=== PATIENT | male | born 1930 | race Caucasian/White ===

== ENCOUNTER 2016-04-25 15:53 | Inpatient (IN) | payer MEDICARE ==
[2016-04-25] MEDS ORDERED: Furosemide 100mg/10 ml Vial IV ONE (15:57)
--- NOTE | 2016-04-25 16:03 | ERPHSYRPT ---
- History of Present Illness Time Seen by Provider: 04/25/16 15:59 Source: patient Exam Limitations: no limitations Physician History: 86 y/o male with history of a fib, CHF, DM and HTN brought in by ambulance for respiratory distress for the past few days. Pt has been having worsening shortness of breath, cough, increase work of breathing and subjective fever. Pt was given a duoneb in route with no relief. Pt arrives with an O2 sat of 92% on RA. Pt also admits to chest tightness. Pt denies any chills, abdominal pain, nausea, vomiting, dizziness or palpitations. Timing/Duration: day(s) Activities at Onset: none Severity of Dyspnea-Max: severe Severity of Dyspnea-Current: severe Possible Cause: frequent episodes Modifying Factors: Improves With: albuterol nebulizer Associated Symptoms: chest pain/discomfort, edema, leg swelling Allergies/Adverse Reactions: NKA Allergy (Verified 04/25/16 16:05) Home Medications: Metoprolol Succinate 50 mg [Toprol Xl 50 MG] 50 mg PO DAILY 03/20/12 [ History] Tamsulosin HCl 0.4 mg [Flomax 0.4 MG] 0.4 mg PO DAILY 03/20/12 [History] Cyclobenzaprine HCl 10 mg PO TID 01/06/13 [History] Docusate Sodium [Colace] 100 mg PO TID 01/06/13 [History] Furosemide 20 mg [Lasix 20 mg] 20 mg PO DAILY 01/06/13 [History] Hydrocodone Bit/Acetaminophen [Hydrocodon-Acetaminophen 5-500] 1 each PO Q4HPRN PRN 01/06/13 [History] Prednisone 10 mg [Deltasone 10 mg] 10 mg PO DAILY 01/06/13 [History] Travoprost [Travatan Z] 2.5 ml OP HS 01/06/13 [History] Hx Tetanus, Diphtheria Vaccination/Date Given: Yes (4-5yrs) Hx Influenza Vaccination/Date Given: Yes (2012) Hx Pneumococcal Vaccination/Date Given: Yes (2011) - Review of Systems Constitutional: No Fever, No Chills Eyes: No Symptoms Ears, Nose, & Throat: No Symptoms Respiratory: Cough, Dyspnea, Dyspnea on Exertion (MITCHELL) Cardiac: Chest Pain, Edema, No Syncope Abdominal/Gastrointestinal: No Abdominal Pain, No Nausea, No Vomiting, No Diarrhea Genitourinary Symptoms: No Dysuria Musculoskeletal: No Back Pain, No Neck Pain Skin: No Rash Neurological: No Dizziness, No Focal Weakness, No Sensory Changes Psychological: No Symptoms Endocrine: No Symptoms All Other Systems: Reviewed and Negative - Past Medical History Pertinent Past Medical History: Yes Neurological History: No Pertinent History ENT History: Glaucoma, Macular Degeneration Cardiac History: Arrhythmia, Hypertension Respiratory History: No Pertinent History Endocrine Medical History: No Pertinent History Musculoskeletal History: Arthritis GI Medical History: Hemorrhoids, Other History: No Pertinent History Psycho-Social History: No Pertinent History Male Reproductive Disorders: Prostate Problems Other Medical History: fx back, rectal bleed - Past Surgical History Past Surgical History: Yes Neuro Surgical History: No Pertinent History Cardiac: No Pertinent History Respiratory: No Pertinent History Gastrointestinal: Appendectomy Genitourinary: No Pertinent History Musculoskeletal: No Pertinent History Male Surgical History: No Pertinent History - Social History Smoking Status: Former smoker Exposure to second hand smoke: No Drug Use: none Patient Lives Alone: No - Nursing Vital Signs Nursing Vital Signs: Initial Vital Signs Temperature 97.9 F Temperature Source Oral Respiratory Rate 28 Blood Pressure [Left Arm] 122/79 Pain Intensity 0 - Physical Exam General Appearance: moderate distress, alert Eye Exam: PERRL/EOMI Neck Exam: normal inspection, supple Respiratory Exam: respiratory distress, crackles/rales, rhonchi Cardiovascular/Chest Exam: normal heart sounds, regular rate/rhythm, tachycardia Abdominal/Gastrointestinal Exam: soft, No tenderness, No distention, No mass Extremity Exam: non-tender, normal range of motion, normal inspection, no calf tenderness, pedal edema, swelling Neurologic Exam: alert, oriented x 3, cooperative, hand clerical verifier II-XII nml as tested, sensation nml, No motor deficits Skin Exam: normal color, warm, No dry - Course Nursing assessment & vital signs reviewed: Yes Ordered Tests: Active Orders 24 hr Category Date Time Status EKG-ER Only STAT Care 04/25/16 15:57 Active Mendoza [Catheter-Shoreham Mendoza] STAT Care 04/25/16 15:54 Active IV Insertion STAT Care 04/25/16 15:56 Active CHEST 1 VIEW (PORTABLE) Stat Exams 04/25/16 15:55 Completed VENOUS UNILAT/LIMITED EXTREMIT [US] Stat Exams 04/25/16 16:03 Completed ABG [ARTERIAL BLOOD GASES] Stat Lab 04/25/16 15:56 Results BLOOD CULTURE Stat Lab 04/25/16 16:24 Received CBC W DIFF Stat Lab 04/25/16 16:24 Completed CMP Stat Lab 04/25/16 16:24 Completed Lactic Acid Stat Lab 04/25/16 16:22 Completed Manual Differential NC Stat Lab 04/25/16 16:24 Completed NT PRO BNP Stat Lab 04/25/16 16:24 Completed TROPONIN Stat Lab 04/25/16 16:24 Completed Oxygen NASAL CANNULA 4 lpm RT 04/25/16 16:07 Active Medication Summary Generic Name Dose Route Start Last Admin Trade Name Freq PRN Reason Stop Dose Admin Levofloxacin/Dextrose 150 mls @ 100 mls/hr 04/25/16 16:56 04/25/16 17:03 Levofloxacin 750mg/150ml D5w IV 04/25/16 18:25 100 mls/hr STAT ONE Administration Discontinued Medications Generic Name Dose Route Start Last Admin Trade Name Freq PRN Reason Stop Dose Admin Furosemide 60 mg 04/25/16 15:57 04/25/16 16:04 Furosemide 100mg/10 Ml Vial IV 04/25/16 15:58 60 mg STAT ONE Administration Furosemide Confirm 04/25/16 16:04 Furosemide 100mg/10 Ml Vial Administered 04/25/16 16:05 Dose 100 mg .ROUTE .STK-MED ONE Levofloxacin/Dextrose Confirm 04/25/16 17:02 Levofloxacin 750mg/150ml D5w Administered 04/25/16 17:03 Dose 150 mls @ ud IV .STK-MED ONE Lab/Rad Data: Laboratory Result Diagrams 04/25/16 16:24 04/25/16 16:24 Laboratory Results 04/25/16 04/25/16 04/25/16 Range/Units 16:24 16:24 16:24 WBC 17.6 H (4.0-10.5) K/mm3 RBC 5.18 (4.1-5.6) M/mm3 Hgb 16.3 (12.5-18.0) gm/dl Hct 48.1 (42-50) % MCV 92.9 (78-100) fl MCH 31.5 (26-32) pg MCHC 33.9 (32-36) g/dl RDW 13.9 (11.5-14.0) % Plt Count 135 L (150-450) K/mm3 MPV 11.5 H (6-9.5) fl Puncture Site pCO2 (35-45) mmHg pO2 (75-100) mmHg Base Excess (-2.0-2.0) O2 Saturation (94-100) g/dF ABG pH (7.35-7.45) ABG HCO3 (22-28) ABG O2 Sat (Measured) (95-100) % Efraín Test A-a Gradient a/A Ratio Hemoglobin Carboxyhemoglobin (0.0-6.9) % THgb Methemoglobin (1.4-1.5) % Potassium 4.4 (3.5-5.1) Temperature C POC O2 Flow Rate % Sodium 136 (136-145) mEq/L Chloride 100 (98-107) mEq/L Carbon Dioxide 24.7 (21-32) mEq/L Anion Gap 15.8 H (5-15) MEQ/L BUN 19 (9-20) mg/dL Creatinine 1.51 H (0.55-1.30) mg/dl Estimated GFR 47 ML/MIN Glucose 222 H (70-110) MG/DL Lactic Acid (0.4-2.0) Calcium 8.5 (8.5-10.1) mg/dL Total Bilirubin 1.1 H (0.2-1.0) mg/dL AST 28 (15-37) U/L ALT 34 (12-78) U/L Alkaline Phosphatase 94 (46-116) U/L Troponin I < 0.017 (0.000-0.056) ng/ml NT-Pro-B Natriuret Pep 1953 H (0-450) pg/ml Serum Total Protein 6.6 (6.4-8.2) gm/dL Albumin 2.7 L (3.4-5.0) g/dL 04/25/16 04/25/16 Range/Units 16:22 15:56 WBC (4.0-10.5) K/mm3 RBC (4.1-5.6) M/mm3 Hgb (12.5-18.0) gm/dl Hct (42-50) % MCV (78-100) fl MCH (26-32) pg MCHC (32-36) g/dl RDW (11.5-14.0) % Plt Count (150-450) K/mm3 MPV (6-9.5) fl Puncture Site Pending pCO2 35 (35-45) mmHg pO2 60 L (75-100) mmHg Base Excess 1.5 (-2.0-2.0) O2 Saturation 92.1 L (94-100) g/dF ABG pH 7.46 H (7.35-7.45) ABG HCO3 24.9 (22-28) ABG O2 Sat (Measured) 94.9 L (95-100) % Efraín Test Pending A-a Gradient 153 a/A Ratio 0.28 Hemoglobin 16.2 Carboxyhemoglobin 1.9 (0.0-6.9) % THgb Methemoglobin 1.1 L (1.4-1.5) % Potassium 4.4 (3.5-5.1) Temperature 37.0 C POC O2 Flow Rate 36 % Sodium (136-145) mEq/L Chloride (98-107) mEq/L Carbon Dioxide (21-32) mEq/L Anion Gap (5-15) MEQ/L BUN (9-20) mg/dL Creatinine (0.55-1.30) mg/dl Estimated GFR ML/MIN Glucose (70-110) MG/DL Lactic Acid 2.9 H (0.4-2.0) Calcium (8.5-10.1) mg/dL Total Bilirubin (0.2-1.0) mg/dL AST (15-37) U/L ALT (12-78) U/L Alkaline Phosphatase (46-116) U/L Troponin I (0.000-0.056) ng/ml NT-Pro-B Natriuret Pep (0-450) pg/ml Serum Total Protein (6.4-8.2) gm/dL Albumin (3.4-5.0) g/dL - Progress Progress: improved Air Movement: fair Progress Note: 04/25/16 17:31 The CXR shows a small infiltrate in the left mid lung field and will require a dose of levaquin. Pt has a white count of 17,000. The ABG shows a pO2 of 60. Pt has a BNP of almost 2000 and has received a dose of lasix 60mg IV X 1 dose. A mendoza has been placed. The RSV is positive. Pt has been admitted to Dr Clark for respiratory distress, CHF and pneumonia. - Departure Time of Disposition: 17:35 Departure Disposition: In-patient Admission Clinical Impression: CHF (congestive heart failure) Qualifiers: Congestive heart failure type: systolic Congestive heart failure chronicity: acute Qualified Code(s): I50.21 - Acute systolic (congestive) heart failure Pneumonia Qualifiers: Pneumonia type: due to unspecified organism Laterality: left Lung location: unspecified part of lung Qualified Code(s): J18.9 - Pneumonia, unspecified organism Condition: Fair Critical Care Time: Yes Critical Care Time(excluding separately billable procedures): 75-104 minutes Instructions: Heart Failure
[2016-04-25] MEDS ORDERED: Furosemide 100mg/10 ml Vial ONE (16:04)
[2016-04-25 16:21] LABS: A-aADO2 153; ARTERIAL BLD GAS O2 SATURATION 94.9 % (95-100); ARTERIAL BLOOD GAS BASE EXCESS 1.5 (-2.0-2.0); ARTERIAL BLOOD GAS FIO2 36 %; ARTERIAL BLOOD GAS PO2 60 mmHg (75-100); ARTERIAL BLOOD GAS pH 7.46 (7.35-7.45)
[2016-04-25 16:33] LABS: Mean Cell Volume 92.9 fl (78-100); Mean Corpuscular Hemoglobin 31.5 pg (26-32); Mean Platelet Volume 11.5 fl (6-9.5); Platelet Count 135 K/mm3 (150-450); Red Blood Count 5.18 M/mm3 (4.1-5.6); Red Cell Distribution Width 13.9 % (11.5-14.0); White Blood Count 17.6 K/mm3 (4.0-10.5)
--- NOTE | 2016-04-25 16:52 | XRAY ---
Exam: AP upright portable chest film from 1610 hrs. on 04/25/2016. Comparison: Frontal chest film from 03/22/2012. Indication: Shortness of breath. Findings: The transverse heart size appears within normal limits. I believe there is a small epicardial fat-pad at the left cardiophrenic angle. The grover and mediastinal structures appear intact. There appears to be a subtle focal air space infiltrate overlying the left midlung field. This is asymmetric with respect to the right lung. Correlate clinically regarding pneumonia. This is a new finding from 03/22/2012. Respiratory tubing overlies the right lung apex. The remainder of the lung gonzalez appears clear. No vascular congestion, pneumothorax, or pleural effusion fluid is seen. Some arthritic changes are seen within both shoulder girdles. Impression: 1. There appears to be a subtle airspace infiltrate overlying the left midlung field which is new from 03/22/2012 and is asymmetric with respect to the right lung on the current exam. I cannot exclude focal pneumonia at this site.
[2016-04-25] MEDS ORDERED: LEVOFLOXACIN 750MG/150ML D5W 150 ML IV ONE ×2 (16:56→17:02)
--- NOTE | 2016-04-25 16:58 | XRAY ---
Exam: Left lower extremity duplex Doppler venous ultrasound exam from 04/25/2016. Comparison: None. Indication: Left leg swelling. Technique: Real-time sonograms were obtained as well as Doppler tracings and color flow imaging of the left lower extremity within the deep veins as well as the proximal greater saphenous vein. Findings: Normal color flow imaging, transducer compression, spontaneous and phasic flow of Doppler signal, and Doppler signal augmentation were seen throughout the deep veins of the left lower extremity. No echogenic clot was seen within any of the deep veins of the left lower extremity on the grayscale images. Impression: 1. No sonographic or Doppler evidence of deep venous thrombosis is seen within the left lower extremity.
[2016-04-25 17:02] LABS: ALBUMIN 2.7 g/dL (3.4-5.0); ANION GAP 15.8 MEQ/L (5-15); BILIRUBIN,TOTAL 1.1 mg/dL (0.2-1.0); Carbon Dioxide 24.7 mEq/L (21-32); Potassium 4.4 mEq/L (3.5-5.1); Total Protein 6.6 gm/dL (6.4-8.2)
[2016-04-25 17:56] LABS: ATYPICAL LYMPHS 2 %; Platelet Estimate NORMAL (NORMAL); Total Cells Counted 100
[2016-04-25] MEDS: TYLENOL 325 MG PO PRN (22:16)
[2016-04-25] MEDS: solu-MEDROL 125 MG IV SCH (22:20)
[2016-04-25] MEDS ORDERED: BENADRYL 25 MG CAPSULE PO PRN (22:51)
[2016-04-25] MEDS ORDERED: Travatan 0.004% Opth Sol OP SCH (23:00)
[2016-04-26] MEDS: Robitussin 100 MG/5 ML PO PRN (00:31)
[2016-04-26] MEDS: xanAX 0.25 MG PO PRN ×2 (00:31→23:06)
[2016-04-26] MEDS ORDERED: DUONEB 0.5-3 MG/3 ml Neb IH ONE (06:00)
[2016-04-26] MEDS: DUONEB 0.5-3 MG/3 ml Neb IH PRN (06:05)
[2016-04-26 06:16] LABS: Mean Cell Volume 92.9 fl (78-100); Mean Corpuscular Hemoglobin 31.5 pg (26-32); Mean Platelet Volume 11.4 fl (6-9.5); Platelet Count 127 K/mm3 (150-450); Red Blood Count 4.92 M/mm3 (4.1-5.6); White Blood Count 15.1 K/mm3 (4.0-10.5)
[2016-04-26 06:37] LABS: Carbon Dioxide 26.7 mEq/L (21-32); Potassium 4.1 mEq/L (3.5-5.1)
[2016-04-26 06:38] LABS: TROPONIN < 0.017 ng/ml (0.000-0.056)
[2016-04-26] MEDS: solu-MEDROL 125 MG IV SCH ×3 (06:51→17:28)
[2016-04-26] MEDS ORDERED: BENADRYL 25 MG CAPSULE PO PRN (08:50)
[2016-04-26] MEDS ORDERED: PHENYLEPHRINE HCL 10 MG PO PRN (08:50)
[2016-04-26] MEDS ORDERED: MAG PO PRN (08:50)
[2016-04-26] MEDS ORDERED: GUAIFENESIN 400 MG PO PRN (08:50)
[2016-04-26] MEDS ORDERED: ASPIRIN PO PRN (08:50)
[2016-04-26] MEDS ORDERED: CALCIUM CARBONATE PO PRN (08:50)
[2016-04-26] MEDS ORDERED: Ecotrin 325 MG PO PRN (08:53)
[2016-04-26] MEDS ORDERED: MEDICATION INTERVENTION MC SCH (09:00)
[2016-04-26] MEDS: Toprol Xl 50 MG PO SCH (11:12)
[2016-04-26] MEDS: Flomax 0.4 MG PO SCH (11:12)
[2016-04-26] MEDS: Lasix 40 MG/4 ML IV SCH (11:12)
[2016-04-26] MEDS: Vasotec 5 MG PO SCH (11:12)
[2016-04-26] MEDS: Toprol-Xl 25MG Tablets PO SCH (11:12)
[2016-04-26] MEDS: Mucinex 600MG ER Tabs PO PRN (11:12)
[2016-04-26] MEDS: ENOXAPARIN SODIUM SQ SCH (11:12)
[2016-04-26] MEDS ORDERED: solu-MEDROL 125 MG IV SCH (14:00)
--- NOTE | 2016-04-26 16:10 | HP ---
CHIEF COMPLAINT: Shortness of breath. HISTORY OF PRESENT ILLNESS: Patient is an 86-year-old white male patient, reports he has been having trouble with shortness of breath over the past couple of months. He began having problems with worsening in his breathing recently, however, becoming very short of breath. The ambulance was summoned, the patient was taken to the emergency room and subsequently admitted to the hospital, having been diagnosed with RSV infection. PAST MEDICAL HISTORY: Significant for glaucoma, macular degeneration, hypertension, arthritis, hemorrhoids, prostate problems. HOME MEDICATIONS: Include metoprolol 50 mg daily, Tamsulosin 0.4 mg at night, cyclobenzaprine mg t.i.d., Docuset 100 mg t.i.d., Lasix 20 mg daily, hydrocodone 5/325 q.4h p.r.n., prednisone 10 mg a day, and Travatan T 2.5 mL optic solution. ALLERGIES: No known drug allergies. PHYSICAL EXAMINATION: GENERAL: Reveals a well nourished, well developed elderly white male patient, currently in no significant distress. VITAL SIGNS: At the time of my visit showed his temperature to be 95.0, pulse 70, respiratory rate 26, blood pressure 113/77, O2 saturations 93% on supplemental oxygen per nasal cannula. HEENT: Normocephalic and atraumatic, pupils are equal, round, reactive to light, extraocular muscles intact. Oropharynx is dry. NECK: Supple without lymphadenopathy, thyromegaly or JVD. CHEST: Reveals bilateral wheezes with fair air movement bilaterally. HEART: Regular rate and rhythm without murmurs, rubs or gallops. ABDOMEN: Soft, nontender, nondistended without hepatosplenomegaly or masses. EXTREMITIES: Without cyanosis, clubbing or edema. NEUROLOGIC: The patient is alert and oriented x3. LABS: Chest x-ray showed a subtle airspace infiltrate overlying the left mid lung field, new from 03/22/12. The patient had a venous ultrasound lower extremities showing no evidence of deep vein thrombosis. He had white count of 17,600, a hemoglobin of 16.3, platelet count of 135,000. He had 93% neutrophils. His metabolic panel showed a nonfasting sugar at 222, BUN 19, creatinine 1.51. electrolytes were normal. He had a NT Pro BNP fuse elevated to 1953. He had negative influenza A and B, however, positive for RSV as indicated above. The patient's troponins were less than 0.017. ASSESSMENT: The patient has RSV bronchitis, possible viral pneumonia. The patient has been admitted to the hospital. For his respiratory distress he has been placed on IV Solu-Medrol at 125 IV q.6h, as well as nebulizer treatments. We will continue his usual home medications for his other medical problems as indicated above.
[2016-04-26] MEDS ORDERED: Levofloxacin 500MG/100ML D5W 100 ML IV SCH (17:00)
[2016-04-26] MEDS: NovoLOG Insulin SQ PRN (17:28)
[2016-04-26] MEDS: PATIENT OWN MEDICATION OP SCH (21:45)
[2016-04-27] MEDS: Robitussin 100 MG/5 ML PO PRN (00:45)
[2016-04-27] MEDS: solu-MEDROL 125 MG IV SCH ×4 (00:48→22:36)
[2016-04-27 06:18] LABS: Mean Corpuscular Hemoglobin 31.4 pg (26-32); Mean Platelet Volume 11.3 fl (6-9.5); Platelet Count 131 K/mm3 (150-450); Red Blood Count 4.72 M/mm3 (4.1-5.6); Red Cell Distribution Width 13.8 % (11.5-14.0); White Blood Count 19.2 K/mm3 (4.0-10.5)
[2016-04-27 09:38] LABS: BAND 2 % (0.0-2.0); Total Cells Counted 100
[2016-04-27 09:39] LABS: Platelet Estimate DECREASED (NORMAL)
[2016-04-27 09:40] LABS: ANION GAP 13.3 MEQ/L (5-15); Carbon Dioxide 27.4 mEq/L (21-32)
[2016-04-27 10:43] LABS: VBG BASE EXCESS 1.6 (-2.0-2.0); VBG CARBOXYHEMOGLOBIN 1.6 % T HGB (0.0-6.9); VBG HCO3- 24.7 meq/L (22-28); VBG O2 SATURATION 84.8 (95-100); VBG pH 7.47 (7.32-7.42)
[2016-04-27] MEDS: Toprol Xl 50 MG PO SCH (11:14)
[2016-04-27] MEDS: Lasix 40 MG/4 ML IV SCH (11:14)
[2016-04-27] MEDS: Vasotec 5 MG PO SCH (11:14)
[2016-04-27] MEDS: Toprol-Xl 25MG Tablets PO SCH (11:14)
[2016-04-27] MEDS: Flomax 0.4 MG PO SCH (11:14)
[2016-04-27] MEDS: ROCEPHIN 1 Gm-D5w 50 ml Bag** 50 ML IV SCH (11:19)
[2016-04-27] MEDS: ENOXAPARIN SODIUM SQ SCH (11:29)
[2016-04-27] MEDS: Zithromax 500 MG/ 250 ML NaCl Premix 250 ML IV SCH (11:59)
[2016-04-27] MEDS: Mucinex 600MG ER Tabs PO PRN (19:45)
[2016-04-27] MEDS: DUONEB 0.5-3 MG/3 ml Neb IH PRN (21:21)
[2016-04-27] MEDS: NovoLOG Insulin SQ PRN (22:34)
[2016-04-27] MEDS: PATIENT OWN MEDICATION OP SCH (22:36)
[2016-04-28] MEDS: Robitussin 100 MG/5 ML PO PRN ×2 (02:04→12:03)
[2016-04-28] MEDS: TYLENOL 325 MG PO PRN ×2 (04:47→22:34)
[2016-04-28 05:49] LABS: Mean Cell Volume 91.7 fl (78-100); Mean Corpuscular Hemoglobin 30.9 pg (26-32); Mean Platelet Volume 11.3 fl (6-9.5); Platelet Count 142 K/mm3 (150-450); Red Blood Count 4.59 M/mm3 (4.1-5.6); Red Cell Distribution Width 13.8 % (11.5-14.0); White Blood Count 16.6 K/mm3 (4.0-10.5)
[2016-04-28] MEDS: solu-MEDROL 125 MG IV SCH ×2 (05:56→18:46)
[2016-04-28 06:11] LABS: ANION GAP 16.5 MEQ/L (5-15); Carbon Dioxide 24.1 mEq/L (21-32); Potassium 3.9 mEq/L (3.5-5.1)
[2016-04-28 06:37] LABS: Total Cells Counted 100
[2016-04-28 06:39] LABS: ANISOCYTOSIS 1+; Poikilocytosis 1+
[2016-04-28 06:49] LABS: Platelet Estimate NORMAL (NORMAL)
[2016-04-28] MEDS: DUONEB 0.5-3 MG/3 ml Neb IH PRN ×2 (07:25→10:58)
--- NOTE | 2016-04-28 08:53 | PCM.NOTE ---
Date and Time: 04/28/1648 Subjective Assessment: He reports he is not interested in going to rehab and wants to go home. He reports he has not walked since he went out to vote. His son is building a [employer] ramp for him. He does not want to go on medicaid at all but is willing to discuss hospice if it is a medicare benefit. He continues to want to be a full code at this time. He reports fatigue and a little bit of an appetite. He continues to have some cough and shortness of breath. - Review of Systems Constitutional: Fatigue Eyes: No Symptoms Ears, Nose, & Throat: No Symptoms Respiratory: Cough, Short Of Breath, Wheezing Cardiac: No Symptoms Abdominal/Gastrointestinal: No Symptoms Genitourinary Symptoms: No Symptoms Musculoskeletal: No Symptoms Skin: No Symptoms Objective Exam General Appearance: no apparent distress Neurologic Exam: alert, cooperative, other (son at bedside) Skin Exam: normal color, warm, dry, other (thin) Respiratory Exam: other (few scattered wheezes) Cardiovascular Exam: other (irregularly irregular) Extremity Exam: other (mild swelling in lower extremities) OBJECTIVE DATA Vital Signs: Vital Signs - 24 hr Temp Pulse Resp BP Pulse Ox 04/28/16 07:40 18 04/28/16 07:27 76 18 90 L 04/28/16 07:26 98.3 F 86 18 80/47 94 L 04/28/16 04:00 16 04/28/16 03:54 98.7 F 72 16 80/40 92 L 04/28/16 00:00 15 04/27/16 23:59 98.2 F 79 15 90/54 92 L 04/27/16 21:28 67 22 95 04/27/16 20:00 98.5 F 74 15 132/78 92 L 04/27/16 16:03 96 04/27/16 16:00 96.0 F 76 23 187/100 91 L 04/27/16 12:00 98.0 F 92 H 22 120/58 96 Oxygen-Last 24 hours O2 Percentage 3 Liters = 32% O2 Percentage 3 Liters = 32% O2 Percentage 3 Liters = 32% O2 Percentage 3 Liters = 32% O2 Percentage 3 Liters = 32% O2 Percentage 3 Liters = 32% Pain Assessment - Last Documented Pain Intensity 2 Pain Scale Used 0-10 Pain Scale Intake and Output: Intake & Output 04/26/16 04/27/16 04/28/16 04/29/16 06:59 06:59 06:59 06:59 Intake Total 420 1190 750 Output Total 800 1200 1000 Balance -380 -10 -250 Weight 115.4 kg 116.573 kg Lab Results: Accuchecks Date 04/28/16 Time 07:30 Accucheck Value: 199 Accucheck Value: 230 Accucheck Value: 162 Accucheck Value: 190 Lab Results-Last 24 Hours 04/27/16 04/27/16 04/27/16 Range/Units 06:00 06:00 10:41 WBC 19.2 H (4.0-10.5) K/mm3 RBC 4.72 (4.1-5.6) M/mm3 Hgb 14.8 (12.5-18.0) gm/dl Hct 43.9 (42-50) % MCV 93.0 (78-100) fl MCH 31.4 (26-32) pg MCHC 33.7 (32-36) g/dl RDW 13.8 (11.5-14.0) % Plt Count 131 L (150-450) K/mm3 MPV 11.3 H (6-9.5) fl Segmented Neutrophils 76 H (36.-66.) % Band Neutrophils 2 (0.0-2.0) % Lymphocytes (Manual) 16 L (24-44) % Monocytes (Manual) 6 (0.0-12.0) % Differential Comment NORMAL Platelet Estimate DECREASED (NORMAL) Poikilocytosis Anisocytosis VBG pH 7.47 H (7.32-7.42) VBG pCO2 at Pat Temp 34 L (42-55) mm/Hg VBG pO2 at Pat Temp 44 H (25-40) mm/Hg VBG HCO3 24.7 (22-28) meq/L VBG O2 Sat (Gerald) 84.8 L (95-100) VBG Base Excess 1.6 (-2.0-2.0) VBG Hemoglobin 16.0 VBG Carboxyhemoglobin 1.6 (0.0-6.9) % T HGB POC Potassium 4.0 (3.5-5.1) Sodium 134 L (136-145) mEq/L Potassium 4.0 (3.5-5.1) mEq/L Chloride 97 L (98-107) mEq/L Carbon Dioxide 27.4 (21-32) mEq/L Anion Gap 13.3 (5-15) MEQ/L BUN 44 H (9-20) mg/dL Creatinine 2.04 H (0.55-1.30) mg/dl Estimated GFR 33 ML/MIN Glucose 200 H (70-110) MG/DL Calcium 8.2 L (8.5-10.1) mg/dL Troponin I (0.000-0.056) ng/ml 04/28/16 04/28/16 04/28/16 Range/Units 05:20 05:20 05:20 WBC 16.6 H (4.0-10.5) K/mm3 RBC 4.59 (4.1-5.6) M/mm3 Hgb 14.2 (12.5-18.0) gm/dl Hct 42.1 (42-50) % MCV 91.7 (78-100) fl MCH 30.9 (26-32) pg MCHC 33.7 (32-36) g/dl RDW 13.8 (11.5-14.0) % Plt Count 142 L (150-450) K/mm3 MPV 11.3 H (6-9.5) fl Segmented Neutrophils 89 H (36.-66.) % Band Neutrophils (0.0-2.0) % Lymphocytes (Manual) 9 L (24-44) % Monocytes (Manual) 2 (0.0-12.0) % Differential Comment ABNORMAL Platelet Estimate NORMAL (NORMAL) Poikilocytosis 1+ Anisocytosis 1+ VBG pH (7.32-7.42) VBG pCO2 at Pat Temp (42-55) mm/Hg VBG pO2 at Pat Temp (25-40) mm/Hg VBG HCO3 (22-28) meq/L VBG O2 Sat (Gerald) (95-100) VBG Base Excess (-2.0-2.0) VBG Hemoglobin VBG Carboxyhemoglobin (0.0-6.9) % T HGB POC Potassium (3.5-5.1) Sodium 133 L (136-145) mEq/L Potassium 3.9 (3.5-5.1) mEq/L Chloride 96 L (98-107) mEq/L Carbon Dioxide 24.1 (21-32) mEq/L Anion Gap 16.5 H (5-15) MEQ/L BUN 64 H (9-20) mg/dL Creatinine 2.70 H (0.55-1.30) mg/dl Estimated GFR 24 ML/MIN Glucose 229 H (70-110) MG/DL Calcium 8.2 L (8.5-10.1) mg/dL Troponin I 0.026 (0.000-0.056) ng/ml Radiology Exams: Radiology Procedures Category Date Time Status ECHO W/2D AND DOPPLER [US] Routine Exams 04/28/16 08:00 Ordered Assessment/Plan (1) CHF (congestive heart failure) Current Visit: Yes Status: Acute Qualifiers: Congestive heart failure type: systolic Congestive heart failure chronicity : acute Qualified Code(s): I50.21 - Acute systolic (congestive) heart failure Assessment & Plan: check ECHO today. Hold metoprolol at this time as systolic BP 80. Consult literacy coach. Consult Hospice. Hold lasix due to low systolic bp. Code(s): I50.9 - HEART FAILURE, UNSPECIFIED (2) RSV (respiratory syncytial virus infection) Current Visit: Yes Status: Acute Code(s): B97.4 - RESPIRATORY SYNCYTIAL VIRUS CAUSING DISEASES CLASSD ELSWHR (3) Atrial fibrillation Current Visit: Yes Status: Acute Assessment & Plan: Currently rate controlled. He has refused full anticoagulation in the past. Continue with aspirin daily. Code(s): I48.91 - UNSPECIFIED ATRIAL FIBRILLATION (4) Acute renal failure Current Visit: Yes Status: Acute Assessment & Plan: Hx of chronic kidney disease with baseline cr of 1.4-1.6. Most likely due to diuresis. (5) Hyponatremia Current Visit: Yes Status: Acute Assessment & Plan: Due to lasix. Hold lasix at this time. Code(s): E87.1 - HYPO-OSMOLALITY AND HYPONATREMIA
[2016-04-28] MEDS: ENOXAPARIN SODIUM SQ SCH (09:52)
[2016-04-28] MEDS: Flomax 0.4 MG PO SCH (09:52)
[2016-04-28] MEDS: ROCEPHIN 1 Gm-D5w 50 ml Bag** 50 ML IV SCH (09:52)
[2016-04-28] MEDS: Zithromax 500 MG/ 250 ML NaCl Premix 250 ML IV SCH (09:53)
[2016-04-28] MEDS: Mucinex 600MG ER Tabs PO PRN (12:02)
[2016-04-28] MEDS: DUONEB 0.5-3 MG/3 ml Neb IH SCH ×2 (14:48→19:16)
[2016-04-28] MEDS: PATIENT OWN MEDICATION OP SCH (20:55)
[2016-04-28] MEDS: NovoLOG Insulin SQ PRN (21:16)
[2016-04-29] MEDS: DUONEB 0.5-3 MG/3 ml Neb IH PRN (03:22)
[2016-04-29] MEDS: TYLENOL 325 MG PO PRN (04:24)
[2016-04-29] MEDS: solu-MEDROL 125 MG IV SCH ×2 (05:48→16:45)
[2016-04-29 06:08] LABS: Mean Cell Volume 91.4 fl (78-100); Mean Corpuscular Hemoglobin 30.8 pg (26-32); Mean Platelet Volume 11.8 fl (6-9.5); Platelet Count 152 K/mm3 (150-450); Red Blood Count 4.54 M/mm3 (4.1-5.6); Red Cell Distribution Width 13.9 % (11.5-14.0); White Blood Count 14.5 K/mm3 (4.0-10.5)
[2016-04-29 06:14] LABS: ANION GAP 18.9 MEQ/L (5-15); Carbon Dioxide 21.6 mEq/L (21-32); Potassium 3.8 mEq/L (3.5-5.1)
[2016-04-29] MEDS: DUONEB 0.5-3 MG/3 ml Neb IH SCH ×4 (06:44→19:33)
[2016-04-29] MEDS: NovoLOG Insulin SQ PRN ×3 (08:10→16:45)
[2016-04-29] MEDS ORDERED: Sodium Chloride 0.9% 500 ML 500 ML IV ONE (08:54)
--- NOTE | 2016-04-29 09:00 | PCM.NOTE ---
Date and Time: 04/29/16 0856 Subjective Assessment: He reports he feels about the same as yesterday. He is receptive to talking to hospice. He is not interested in dialysis. He would like to go home as soon as possible. He reports when he drank a lot of fluids his left arm swelled up and started leaking fluid in the past. He thinks that sometimes the pain medications make him itch or upset his stomach but his back is bothering him and he would like to try something besides tylenol for pain. - Review of Systems Constitutional: Fatigue Eyes: No Symptoms Ears, Nose, & Throat: No Symptoms Respiratory: Cough, Short Of Breath, Wheezing Cardiac: No Symptoms Abdominal/Gastrointestinal: No Symptoms Genitourinary Symptoms: No Symptoms Musculoskeletal: No Symptoms Skin: No Symptoms Objective Exam General Appearance: no apparent distress, alert, other (lying in bed, son at bedside) Neurologic Exam: alert, cooperative, normal mood/affect Skin Exam: normal color, warm, dry, No rash Respiratory Exam: airway intact, other (few scattered wheezes, no crackles, equal breath sounds), No respiratory distress, No accessory muscle use, No crackles/rales Cardiovascular Exam: other (irregularly irregular rhytym) Gastrointestinal/Abdomen Exam: soft, normal bowel sounds, No tenderness, No distention, No mass, No guarding Extremity Exam: other (no c/c/e) OBJECTIVE DATA Vital Signs: Vital Signs - 24 hr Temp Pulse Resp BP Pulse Ox 04/29/16 07:31 95 H 18 94 L 04/29/16 07:23 98.2 F 95 H 18 93/55 94 L 04/29/16 04:00 97.5 F 89 25 H 95/55 97 04/29/16 03:22 97 H 24 94 L 04/29/16 00:00 97.9 F 69 18 100/59 94 L 04/28/16 20:03 94 L 04/28/16 20:00 98.0 F 75 20 97/52 96 04/28/16 19:22 86 18 96 04/28/16 16:00 18 04/28/16 14:55 75 18 96 04/28/16 13:05 98.2 F 91 H 18 102/51 93 L 04/28/16 12:00 18 04/28/16 10:58 79 20 95 04/28/16 10:53 90/58 04/28/16 09:49 92 L Oxygen-Last 24 hours O2 Percentage 2 Liters = 28% O2 Percentage 4 Liters = 36% O2 Percentage 2 Liters = 28% O2 Percentage 4 Liters = 36% Pain Assessment - Last Documented Pain Intensity 4 Pain Scale Used FLACC Intake and Output: Intake & Output 04/27/16 04/28/16 04/29/16 04/30/16 06:59 06:59 06:59 06:59 Intake Total 9553 341 3676 Output Total 1200 1000 1850 Balance -10 250 -176 Weight 117.526 kg 119.204 kg Lab Results: Accuchecks Date 04/28/16 Date 04/28/16 Date 04/28/16 Time 22:00 Time 16:30 Time 11:30 Accucheck Value: 247 Accucheck Value: 193 Accucheck Value: 251 Lab Results-Last 24 Hours 04/29/16 04/29/16 Range/Units 05:00 05:00 WBC 14.5 H (4.0-10.5) K/mm3 RBC 4.54 (4.1-5.6) M/mm3 Hgb 14.0 (12.5-18.0) gm/dl Hct 41.5 L (42-50) % MCV 91.4 (78-100) fl MCH 30.8 (26-32) pg MCHC 33.7 (32-36) g/dl RDW 13.9 (11.5-14.0) % Plt Count 152 (150-450) K/mm3 MPV 11.8 H (6-9.5) fl Sodium 130 L (136-145) mEq/L Potassium 3.8 (3.5-5.1) mEq/L Chloride 93 L (98-107) mEq/L Carbon Dioxide 21.6 (21-32) mEq/L Anion Gap 18.9 H (5-15) MEQ/L BUN 93 H (9-20) mg/dL Creatinine 3.52 H (0.55-1.30) mg/dl Estimated GFR 18 ML/MIN Glucose 220 H (70-110) MG/DL Calcium 8.0 L (8.5-10.1) mg/dL Radiology Exams: Radiology Procedures Category Date Time Status ECHO W/2D AND DOPPLER [US] Routine Exams 04/28/16 08:00 Taken Multi-Disciplinary Progress Notes: Multi-Disciplinary Progress Notes 04/28/16 10:00 (created 04/28/16 15:49) Case Management Note by Della Medina SPOKE WITH SON, NOHEMI IN REGARDS TO NEEDS AT DISCHARGE AND AT HOME CARE PLAN. NOHEMI REPORTS THAT HE IS PRIMARY CAREGIVER. REPORTS THAT HIS DAD HAS BEEN PRETTY MUCH BEDRIDDEN. REPORTS THAT HE HAS BEEN PROVIDING TOTAL PATIENT CARE. DISCUSSED SENIOR CARE REHAB. SON DECLINED NEED FOR REHAB STAY. DISCUSSED HHC SERVICES VS HOSPICE SERVICES. REPORTS THAT HE WANTS TO DISCUSS WITH HIS DAD TODAY AND WILL SPEAK WITH [facility] TOMORROW IN REGARDS TO [facility] SUPPORT IN THE HOME. DECLINED [facility] NEEDS AT PRESENT. WILL CONTINUE TO FOLLOW AND ASSESS FOR ALL DC NEEDS. Initialized on 04/28/16 15:49 - END OF NOTE Assessment/Plan (1) CHF (congestive heart failure) Current Visit: Yes Status: Acute Qualifiers: Congestive heart failure type: systolic Congestive heart failure chronicity : acute Qualified Code(s): I50.21 - Acute systolic (congestive) heart failure Assessment & Plan: Echo ordered. Cardiology consult ordered. Holding off on any more IV lasix as he has acute renal failure on chronic kidney disease now. Code(s): I50.9 - HEART FAILURE, UNSPECIFIED (2) RSV (respiratory syncytial virus infection) Current Visit: Yes Status: Acute Code(s): B97.4 - RESPIRATORY SYNCYTIAL VIRUS CAUSING DISEASES CLASSD ELSWHR (3) Atrial fibrillation Current Visit: Yes Status: Acute Assessment & Plan: Will try to start a low dose of metoprolol today to help control rate. Continue aspirin daily. Patient has not been interested in full anticoagulation. Code(s): I48.91 - UNSPECIFIED ATRIAL FIBRILLATION (4) Acute renal failure Current Visit: Yes Status: Acute Assessment & Plan: Lasix held yesterday. Creatinine is worse today. Will give 500 mL normal saline bolus. (5) Hyponatremia Current Visit: Yes Status: Acute Assessment & Plan: Try 500 mL normal saline bolus. Code(s): E87.1 - HYPO-OSMOLALITY AND HYPONATREMIA
[2016-04-29] MEDS: ROCEPHIN 1 Gm-D5w 50 ml Bag** 50 ML IV SCH (10:00)
[2016-04-29] MEDS: NORCO 5/325 MG PO PRN ×2 (10:45→16:45)
[2016-04-29] MEDS: Flomax 0.4 MG PO SCH (10:51)
[2016-04-29] MEDS: Zithromax 500 MG/ 250 ML NaCl Premix 250 ML IV SCH (10:52)
[2016-04-29] MEDS: ENOXAPARIN SODIUM SQ SCH (11:10)
[2016-04-29 12:43] LABS: Total Cells Counted 100
[2016-04-29 12:44] LABS: ANISOCYTOSIS 1+; Platelet Estimate NORMAL (NORMAL); Poikilocytosis 1+
--- NOTE | 2016-04-29 14:07 | ECHO ---
DATE OF PROCEDURE: 04/28/2016 CLINICAL INFORMATION: Congestive heart failure. The M-mode 2D, and Doppler echocardiogram including color flow Doppler shows accentuated contractility of left ventricle with an ejection fraction calculated at 87%. There is mild tricuspid regurgitation with the right ventricular systolic pressure being elevated at 33 mm of Mercury. The right ventricle is not well visualized. The left atrium is normal in size with a dimension of 3.8 cm. The aortic root is mildly dilated with a dimension of 3.9 cm. The left ventricle is normal in size with a dimension of 3.7 cm. The interventricular septum is mildly thickened at 1.2 cm. The left ventricular posterior wall is moderately thickened with a dimension of 1.9 cm. The aortic valve opens well. It is trileaflet. The mitral valve is grossly normal. There is mild pulmonic regurgitation. There is no thrombus in the left ventricular apex. The underlying rhythm appears to be atrial fibrillation. There is mild aortic regurgitation. The intra-atrial septum is intact. There is no pericardial effusion present. IMPRESSION: 1) ACCENTUATED CONTRACTILITY OF THE LEFT VENTRICLE. 2) MODERATE ASYMMETRIC LEFT VENTRICULAR HYPERTROPHY. 3) MILD AORTIC REGURGITATION ASSOCIATED WITH MILD AORTIC ROOT DILATATION. 4) MILD MITRAL REGURGITATION. 5) MILD PULMONIC REGURGITATION.
[2016-04-29] MEDS: Robitussin 100 MG/5 ML PO PRN (17:50)
[2016-04-29] MEDS: PATIENT OWN MEDICATION OP SCH (22:09)
[2016-04-29] MEDS: Lopressor 25MG Tab PO SCH (22:09)
[2016-04-30] MEDS: NovoLOG Insulin SQ PRN ×4 (01:42→16:42)
[2016-04-30] MEDS: solu-MEDROL 125 MG IV SCH (05:04)
[2016-04-30] MEDS: NORCO 5/325 MG PO PRN (05:05)
[2016-04-30 05:58] LABS: ANION GAP 17.7 MEQ/L (5-15); Carbon Dioxide 24.2 mEq/L (21-32)
[2016-04-30 05:59] LABS: BASOPHIL % 0.1 % (0.0-0.4); Granulocytes % 88.3 % (36.0-66.0); Lymphocytes % 4.2 % (24.0-44.0); Mean Corpuscular Hemoglobin 31.2 pg (26-32); Mean Platelet Volume 11.6 fl (6-9.5); Monocytes % 7.4 % (0.0-12.0); Platelet Count 138 K/mm3 (150-450); Red Blood Count 4.68 M/mm3 (4.1-5.6); Red Cell Distribution Width 13.8 % (11.5-14.0); White Blood Count 13.9 K/mm3 (4.0-10.5)
[2016-04-30] MEDS: DUONEB 0.5-3 MG/3 ml Neb IH SCH ×3 (06:37→14:45)
[2016-04-30 07:40] LABS: BAND 1 % (0.0-2.0); Total Cells Counted 100; Toxic Granulation 1+
[2016-04-30 07:41] LABS: Platelet Estimate NORMAL (NORMAL)
--- NOTE | 2016-04-30 08:58 | PCM.NOTE ---
Date and Time: 04/30/16 0852 Subjective Assessment: Patient reports that he continues to be very fatigued and has not been up to a chair. His son is at the bedside. He is not interested in going to rehab. He wants to go home when he leaves here. He reports not sleeping well and a poor appetite. He reports his left arm started weaping again yesterday. He is not interested in dialysis for his failing kidneys. - Review of Systems Constitutional: No Symptoms Eyes: No Symptoms Respiratory: Short Of Breath, Wheezing Cardiac: No Symptoms Abdominal/Gastrointestinal: No Symptoms Genitourinary Symptoms: No Symptoms Musculoskeletal: No Symptoms Skin: Other (fluid draining from left arm, swellin gin legs. ) Objective Exam General Appearance: no apparent distress, alert Neurologic Exam: alert, cooperative, other (poor insight) Skin Exam: normal color, warm Respiratory Exam: airway intact, diminished breath sounds, crackles/rales, wheezing, No accessory muscle use Cardiovascular Exam: other (irregularly irregular, no m/g/r) Gastrointestinal/Abdomen Exam: soft, No tenderness, No distention, No mass, No guarding Extremity Exam: other (+3 edema to knees bilat) OBJECTIVE DATA Vital Signs: Vital Signs - 24 hr Temp Pulse Resp BP Pulse Ox 04/30/16 07:14 97.6 F 80 18 116/62 94 L 04/30/16 06:42 80 18 94 L 04/30/16 04:00 98.2 F 76 15 110/66 85 L 04/29/16 23:44 97.7 F 83 16 103/59 93 L 04/29/16 20:00 97.9 F 104 H 16 110/54 98 04/29/16 19:38 91 H 20 93 L 04/29/16 16:00 97.6 F 95 H 18 119/58 95 04/29/16 14:08 82 18 94 L 04/29/16 10:57 98.3 F 95 H 18 110/61 95 04/29/16 10:54 80 18 95 Oxygen-Last 24 hours O2 Percentage 2 Liters = 28% O2 Percentage 2 Liters = 28% O2 Percentage 2 Liters = 28% O2 Percentage 2 Liters = 28% O2 Percentage 2 Liters = 28% O2 Percentage 2 Liters = 28% Pain Assessment - Last Documented Pain Intensity 5 Pain Scale Used FLACC Intake and Output: Intake & Output 04/28/16 04/29/16 04/30/16 05/01/16 06:59 06:59 06:59 06:59 Intake Total 750 1180 1221 Output Total 1000 1850 850 Balance -250 -670 371 Weight 117.526 kg 119.204 kg 122.697 kg Lab Results: Accuchecks Date 04/30/16 Time 07:50 Accucheck Value: 215 Accucheck Value: 265 Accucheck Value: 288 Accucheck Value: 217 Accucheck Value: 262 Lab Results-Last 24 Hours 04/29/16 04/30/16 04/30/16 Range/Units 05:00 05:15 05:15 WBC 14.5 H 13.9 H (4.0-10.5) K/mm3 RBC 4.54 4.68 (4.1-5.6) M/mm3 Hgb 14.0 14.6 (12.5-18.0) gm/dl Hct 41.5 L 42.6 (42-50) % MCV 91.4 91.0 (78-100) fl MCH 30.8 31.2 (26-32) pg MCHC 33.7 34.3 (32-36) g/dl RDW 13.9 13.8 (11.5-14.0) % Plt Count 152 138 L (150-450) K/mm3 MPV 11.8 H 11.6 H (6-9.5) fl Gran % 88.3 H (36.0-66.0) % Lymphocytes % 4.2 L (24.0-44.0) % Monocytes % 7.4 (0.0-12.0) % Eosinophils % 0.0 (0.00-5.0) % Basophils % 0.1 (0.0-0.4) % Segmented Neutrophils 81 H 96 H (36.-66.) % Band Neutrophils 1 (0.0-2.0) % Lymphocytes (Manual) 16 L 2 L (24-44) % Monocytes (Manual) 3 1 (0.0-12.0) % Basophils # 0.02 (0-0.4) Differential Comment NORMAL Toxic Granulation 1+ Platelet Estimate NORMAL NORMAL (NORMAL) Poikilocytosis 1+ Anisocytosis 1+ Sodium 132 L (136-145) mEq/L Potassium 4.0 (3.5-5.1) mEq/L Chloride 94 L (98-107) mEq/L Carbon Dioxide 24.2 (21-32) mEq/L Anion Gap 17.7 H (5-15) MEQ/L BUN 97 H (9-20) mg/dL Creatinine 3.56 H (0.55-1.30) mg/dl Estimated GFR 17 ML/MIN Glucose 220 H (70-110) MG/DL Calcium 8.2 L (8.5-10.1) mg/dL Radiology Exams: Radiology Procedures Category Date Time Status ECHO W/2D AND DOPPLER [US] Routine Exams 04/28/16 08:00 Draft Multi-Disciplinary Progress Notes: Multi-Disciplinary Progress Notes 04/29/16 13:35 (created 04/29/16 15:31) Case Management Note by Della Medina FROM [facility] REPORTS THAT THEY WILL BE WORKING WITH SON TO HAVE ALL NECESSARY EQUIPMENT DELIVERED TO PT'S HOME PRIOR TO DISCHARGE. REPORTS THAT PT AND PT'S SON HOPING FOR DISCHARGE HOME TOMORROW, 04/30/16. Initialized on 04/29/16 15:31 - END OF NOTE 04/29/16 10:15 (created 04/29/16 13:00) Case Management Note by Della Medina [facility] TO VISIT WITH PT TODAY BETWEEN [phone] TO ANSWER ANY QUESTIONS FOR PT/SON. Initialized on 04/29/16 13:00 - END OF NOTE 04/29/16 09:49 Case Management Note by Della Medina REFERRAL FAXED TO [facility] PER PT/SON REQUEST AND MD ORDER Initialized on 04/29/16 09:49 - END OF NOTE Assessment/Plan (1) CHF (congestive heart failure) Current Visit: Yes Status: Acute Qualifiers: Congestive heart failure type: systolic Congestive heart failure chronicity : acute Qualified Code(s): I50.21 - Acute systolic (congestive) heart failure Assessment & Plan: His Echo has been read. Health Care Liaison consulted. He must have more diastolic dysfunction as his EF is around 80%. Lasix is currently held due to acute renal failure. Prognosis is guarded and poor. Code(s): I50.9 - HEART FAILURE, UNSPECIFIED (2) RSV (respiratory syncytial virus infection) Current Visit: Yes Status: Acute Code(s): B97.4 - RESPIRATORY SYNCYTIAL VIRUS CAUSING DISEASES CLASSD ELSWHR (3) Atrial fibrillation Current Visit: Yes Status: Acute Assessment & Plan: His rate is currently controlled with metoprolol tartrate 25 mg po bid. Code(s): I48.91 - UNSPECIFIED ATRIAL FIBRILLATION (4) Acute renal failure Current Visit: Yes Status: Acute Assessment & Plan: He is not interested in seeing a vocal artist or having dialysis. (5) Hyponatremia Current Visit: Yes Status: Acute Assessment & Plan: Slightly improved with 500 mL NS bolus. Code(s): E87.1 - HYPO-OSMOLALITY AND HYPONATREMIA
[2016-04-30] MEDS: ENOXAPARIN SODIUM SQ SCH (09:13)
[2016-04-30] MEDS: Lopressor 25MG Tab PO SCH (09:13)
[2016-04-30] MEDS: Flomax 0.4 MG PO SCH (09:13)
[2016-04-30] MEDS: ROCEPHIN 1 Gm-D5w 50 ml Bag** 50 ML IV SCH (09:14)
[2016-04-30] MEDS: Zithromax 500 MG/ 250 ML NaCl Premix 250 ML IV SCH (10:00)
--- NOTE | 2016-04-30 11:11 | PCM.DCORD ---
- Discharge Discharge Date: 04/30/16 Disposition: Home, Self-Care Condition: Fair Prescriptions: New Cefdinir 300 mg PO BID #6 capsule Albuterol/Ipratropium 3ml Neb* [DUONEB 0.5-3 MG/3 ml Neb] 3 ml IH Q4HPRN PRN #50 ampul.neb PRN Reason: Shortness Of Breath/Wheezing Hydrocodone Bit/Acetaminophen [Hydrocodon-Acetaminophen 5-325] 1 each PO Q4H PRN #100 tablet PRN Reason: Pain Metoprolol Tartrate 25 mg [Lopressor 25MG Tab] 25 mg PO BID #60 tab Continue Tamsulosin HCl 0.4 mg [Flomax 0.4 MG] 0.4 mg PO DAILY Furosemide 20 mg [Lasix 20 mg] 20 mg PO DAILY PRN PRN PRN Reason: Shortness Of Breath Travoprost [Travatan Z] 1 drop OP HS Aspirin/Calcium Carbonate/Mag [Bufferin 325 mg Tablet] 1 - 2 tab PO DAILY PRN PRN Reason: Pain Guaifenesin 400 mg PO Q4HPRN PRN PRN Reason: Cough Acetaminophen [Tylenol] 650 mg PO Q4HPRN PRN PRN Reason: Pain Diphenhydramine HCl [Benadryl] 1 - 2 tab PO Q4-6HPRN PRN PRN Reason: Allergies Vit A/Vit C/Vit E/Zinc/Copper [Preservision Areds Softgel] 1 each PO DAILY Prednisone 20 mg [Deltasone 20 mg] 20 mg PO DAILY PRN PRN Reason: Pain Discontinued Metoprolol Succinate 25 mg Xl* [Toprol-Xl 25MG Tablets] 75 mg PO QAM Phenylephrine HCl [Suphedrine PE] 10 mg PO Q4H PRN MDD 6 IN 24HRS PRN Reason: Sinus Congestion Instructions: Heart Failure Additional Instructions: Discharge home with Hospice. Follow up with: [facility] [Primary Care Provider] -
--- NOTE | 2016-04-30 13:01 | CONS ---
CONSULT DATE: 04/30/2016 BRIEF HISTORY: This is an 86 year-old male who was seen because of shortness of breath. The patient states that he has been having intermittent shortness of breath for several months now. He has been staying at home. His exercise capacity is somewhat limited. He denied any chest pains. His serial troponin I is normal. His chest x-ray revealed some infiltrate overlying the left mid lung field. He is currently being enrolled in Hospice care. He denies any history of myocardial infarction or previous heart failure. CARDIAC RISK FACTORS: Negative for diabetes. History of hypertension. Remote history of smoking. No known hyperlipidemia. 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 RESPIRATORY: He has had multiple pneumonias in the past. GI: No history of peptic ulcer or heartburn. : He has renal failure with a creatinine of 3.5 on this admission. PERIPHERAL VASCULAR: No history of deep venous thrombosis. Venous Doppler study was negative for deep venous thrombosis. PAST SURGICAL HISTORY: Appendectomy. MEDICATIONS: Zithromax, Solu-Medrol, metoprolol, Flomax, Mucinex, DuoNeb, Ecotrin, Robitussin. SOCIAL HISTORY: He stays with his son. No significant alcohol intake. PHYSICAL EXAMINATION: Blood pressure 110/66, pulse 76, respiratory rate about 16. GENERAL: The patient is an elderly male who is awake and does not appear to be in any form of distress. HEENT: Slightly pale conjunctivae. NECK: No significant JVD. CHEST: The breath sounds are diminished with rhonchi and coarse crackles in both lungs. CARDIAC: Heart tones are somewhat distant. The rhythm is regular. ABDOMEN: Soft with normal bowel sounds. EXTREMITIES: There is bilateral leg edema with decreased distal pulses. NEURO: He has some muscle fasciculations. LAB DATA AND DIAGNOSTIC TESTS: The EKG shows normal sinus rhythm. The serial troponin I is within normal range. CBC shows white blood cell count of 13.9, hemoglobin 14.6. BUN 49, creatinine 2.5. ASSESSMENT: Shortness of breath this is probably multifactorial. He may be volume overloaded as he may be retaining fluid as a result of his renal failure. In addition, he probably has an underlying pneumonia. His echocardiogram showed a normal left ventricular ejection fraction. From the cardiac standpoint he may have some underlying left ventricular diastolic dysfunction. In view of the patient's advanced age and Hospice care I would continue with conservative approach, continue with beta blockers.
[2016-04-30 16:28] VITALS: BP 129/58; PULSE 98; O2SAT 95
== END 2016-04-30 17:40 | disposition hospice, home (50) | DRG 292 ==
LOC: ED 15:53 → ICU 19:32 → MED SURG 04-26 16:03
PROVIDERS: ADMIT Family Medicine; ATTEND Family Medicine
DX: I50.21 Acute systolic (congestive) heart failure (principal); N17.9 Acute kidney failure, unspecified; E87.1 Hypo-osmolality and hyponatremia; J45.901 Unspecified asthma with (acute) exacerbation; B97.4 Respiratory syncytial virus as the cause of diseases classified elsewhere; J40 Bronchitis, not specified as acute or chronic; I48.91 Unspecified atrial fibrillation; I10 Essential (primary) hypertension; M19.90 Unspecified osteoarthritis, unspecified site
CPT/HCPCS: 36415; 36600; 51702; 71010; 80048; 80053; 82375; 82803; 82805; 82962; 83036; 83605; 83880; 84134; 84484; 85007; 85025; 85027; 87040; 87631; 93005; 93306; 93971; 94640; 94760; 94761; 96365; 96374; 99284; 99285; J0456; J0696; J1650; J1940; J1956; J2930